=== PATIENT | female | born 1935 | race Caucasian/White ===

== ENCOUNTER 2019-10-29 13:20 | Emergency (ER) | payer MEDICARE ==
[~2019-10-29 13:20] MED LIST: SODIUM CHLORIDE IV ONE
[2019-10-29 14:05] LABS: BASOPHILS % (AUTO) 0.3 % (0.0-5.0); EOSINOPHILS % (AUTO) 0.5 % (0.0-8.0); LYMPHOCYTES % (AUTO) 21.4 % (21.0-51.0); MEAN CORPUSCULAR HEMOGLOBIN 24.4 pg (27.0-33.0); MEAN CORPUSCULAR HGB CONC 31.6 g/dL (32.0-36.0); MEAN CORPUSCULAR VOLUME 77.3 fL (79-99); MONOCYTES % (AUTO) 11.5 % (3.0-13.0); PLATELET COUNT (AUTO) 300 K/uL (130-400); RED BLOOD CELL COUNT(AUTO) 4.01 MIL/uL (4.00-5.50); RED CELL DISTRIBUTION WIDTH 15.4 % (11.0-15.5); WHITE BLOOD COUNT (AUTO) 5.8 K/uL (4.8-10.8)
[2019-10-29 14:17] LABS: CREATININE 1.1 mg/dL (0.5-1.5)
[2019-10-29 14:21] LABS: ALBUMIN 3.2 g/dL (3.5-5.0); BILIRUBIN,DIRECT 0.1 mg/dL (0.0-0.3); BILIRUBIN,TOTAL 0.2 mg/dL (0.2-1.0)
[2019-10-29] MEDS ORDERED: ONDANSETRON HCL 4 MG/2 ML VIAL ONE (14:38)
[2019-10-29] MEDS ORDERED: CEFTRIAXONE SODIUM 1 GM ONE (14:39)
[2019-10-29 16:23] LABS: APPEARANCE,URINE Clear (CLEAR); BILIRUBIN,URINE Negative (NEGATIVE); COLOR,URINE Yellow (YELLOW); GLUCOSE, URINE (UA) Negative (NEGATIVE); KETONES,URINE Negative (NEGATIVE); LEUKOCYTE ESTERASE ,URINE Negative (NEGATIVE); NITRATE,URINE Negative (NEGATIVE); OCCULT BLOOD,URINE Negative (NEGATIVE); PH,URINE >=9.0 (5.0-8.0); PROTEIN,URINE Negative (NEGATIVE); UROBILINOGEN,URINE 0.2 mg/dL (0.2-1.0)
[2019-10-29 16:36] LABS: BACTERIA,URINE Rare /HPF (None Seen); RBC,URINE 0-1 /HPF (0-1); SQUAMOUS EPITHELIAL CELL,UR Rare /HPF (0-2); WBC,URINE 0-1 /HPF (0-1)
== END 2019-10-29 18:30 | disposition home or self-care (01) ==
LOC: EDH 13:20
DX: J20.9 Acute bronchitis, unspecified (principal); E86.0 Dehydration; I10 Essential (primary) hypertension
CPT/HCPCS: 36415; 71045; 80048; 80076; 81001; 82550; 83605; 83690; 84484; 85025; 87040 ×2; 87804 ×2; 93005; 96361; 96374; 96375; 99285; J0696; J2405

== ENCOUNTER 2020-09-30 14:23 | Inpatient (IN) | payer MEDICARE ==
[~2020-09-30] VITALS: Ht 157.5 cm; Wt 59.7 kg
[2020-09-30 15:07] LABS: BASOPHILS % (AUTO) 0.5 % (0.0-5.0); EOSINOPHILS % (AUTO) 0.7 % (0.0-8.0); HEMATOCRIT 35.9 % (36-48); MEAN CORPUSCULAR HGB CONC 31.2 g/dL (32.0-36.0); MONOCYTES % (AUTO) 8.6 % (3.0-13.0); NEUTROPHILS % (AUTO) 69.8 % (40.0-77.0); PLATELET COUNT (AUTO) 256 K/uL (130-400); RED BLOOD CELL COUNT(AUTO) 4.66 MIL/uL (4.00-5.50); WHITE BLOOD COUNT (AUTO) 9.7 K/uL (4.8-10.8)
[2020-09-30 15:18] LABS: CREATININE 1.1 mg/dL (0.5-1.5); POTASSIUM 3.2 mmol/L (3.5-5.1)
[2020-09-30 15:20] LABS: INR 1.05 (0.85-1.15); PROTHROMBIN TIME 11.4 SEC (9.6-11.6)
[2020-09-30 15:21] LABS: PARTIAL THROMBOPLASTIN TIME 21.8 SEC (26.3-35.5)
[2020-09-30 15:26] LABS: ALBUMIN 3.3 g/dL (3.5-5.0); BILIRUBIN,DIRECT 0.1 mg/dL (0.0-0.3); BILIRUBIN,TOTAL 0.6 mg/dL (0.2-1.0); TOTAL PROTEIN, SERUM 6.9 g/dL (6.0-8.3)
[2020-09-30 15:27] LABS: ACETAMINOPHEN < 1 mcg/mL (10-30); ALCOHOL, BLOOD < 3 mg/dL (0-10); SALICYLATE < 2.8 mg/dL (2.8-20.0)
[2020-09-30] MEDS ORDERED: ACETAMINOPHEN WITH CODEINE 1 TAB TAB ONE (15:40)
[2020-09-30] MEDS ORDERED: POTASSIUM CHLORIDE 10% ELIXIR 20 MEQ/15 ML UDCUP ONE (16:10)
[2020-09-30 16:34] LABS: APPEARANCE,URINE Cloudy (CLEAR); BILIRUBIN,URINE Negative (NEGATIVE); COLOR,URINE Yellow (YELLOW); GLUCOSE, URINE (UA) Negative (NEGATIVE); KETONES,URINE Negative (NEGATIVE); LEUKOCYTE ESTERASE ,URINE Moderate (NEGATIVE); NITRATE,URINE Negative (NEGATIVE); OCCULT BLOOD,URINE Negative (NEGATIVE); PH,URINE 7.5 (5.0-8.0); PROTEIN,URINE POS 2+ mg/dL (NEGATIVE)
[2020-09-30 17:00] LABS: BACTERIA,URINE Few /HPF (None Seen); MUCUS,URINE Few LPF (None Seen); SQUAMOUS EPITHELIAL CELL,UR Moderate /HPF (0-2)
[2020-09-30] MEDS: CEFTRIAXONE 1G VIAL IVP SCH (17:30)
[2020-09-30 17:50] LABS: % IRON SATURATION 10.2 % (22-44)
[2020-09-30 18:12] LABS: AMPHET/METH SCREEN,URINE NEGATIVE (NEGATIVE); BARBITURATE SCREEN, URINE NEGATIVE (NEGATIVE); BENZODIAZEPINES SCREEN,URINE NEGATIVE (NEGATIVE); CANNABINOID SCREEN,URINE NEGATIVE (NEGATIVE); COCAINE SCREEN,URINE NEGATIVE (NEGATIVE); OPIATE SCREEN,URINE NEGATIVE (NEGATIVE); PHENCYCLIDINE SCREEN,URINE NEGATIVE (NEGATIVE)
[2020-09-30] MEDS ORDERED: CEFTRIAXONE 1G VIAL ONE (18:18)
[2020-09-30] MEDS ORDERED: 0.9%NACL 50ML 50 ML IV ONE (18:19)
[2020-09-30] MEDS ORDERED: POTASSIUM CHLORIDE 10% ELIXIR 20 MEQ/15 ML UDCUP PO PRN (19:00)
[2020-09-30] MEDS ORDERED: MAGNESIUM 2GM PREMIX 50ML 50 ML IV PRN (19:00)
[2020-09-30] MEDS ORDERED: POTASSIUM CHLORIDE 20MEQ/100ML 100 ML IV PRN (19:00)
[2020-09-30] MEDS: LACTATED RINGERS 1000ML 1,000 ML IV SCH (19:00)
[2020-09-30] MEDS: PANTOPRAZOLE 40 MG TAB DR PO SCH (21:00)
[2020-10-01] MEDS ORDERED: ACETAMINOPHEN WITH CODEINE 1 TAB TAB ONE ×2 (00:24→06:29)
[2020-10-01] MEDS ORDERED: MAGNESIUM 2GM PREMIX 50ML 50 ML IV ONE (02:14)
[2020-10-01] MEDS ORDERED: CEFTRIAXONE 1G VIAL ONE ×2 (05:10→16:21)
[2020-10-01] MEDS: CEFTRIAXONE 1G VIAL IVP SCH ×2 (05:30→17:30)
[2020-10-01 06:27] LABS: BASOPHILS % (AUTO) 0.3 % (0.0-5.0); EOSINOPHILS % (AUTO) 0.1 % (0.0-8.0); HEMATOCRIT 34.5 % (36-48); LYMPHOCYTES % (AUTO) 19.6 % (21.0-51.0); MEAN CORPUSCULAR HEMOGLOBIN 24.3 pg (27.0-33.0); MEAN CORPUSCULAR HGB CONC 31.6 g/dL (32.0-36.0); MONOCYTES % (AUTO) 11.7 % (3.0-13.0); PLATELET COUNT (AUTO) 303 K/uL (130-400); RED BLOOD CELL COUNT(AUTO) 4.48 MIL/uL (4.00-5.50); RED CELL DISTRIBUTION WIDTH 16.3 % (11.0-15.5); WHITE BLOOD COUNT (AUTO) 10.6 K/uL (4.8-10.8)
[2020-10-01 06:42] LABS: ALBUMIN 3.3 g/dL (3.5-5.0); BILIRUBIN,TOTAL 0.5 mg/dL (0.2-1.0); MAGNESIUM 2.4 mg/dL (1.80-2.40); POTASSIUM 4.8 mmol/L (3.5-5.1); TOTAL PROTEIN, SERUM 7.1 g/dL (6.0-8.3)
[2020-10-01] MEDS: LACTATED RINGERS 1000ML 1,000 ML IV SCH ×2 (08:20→21:40)
[2020-10-01] MEDS: PANTOPRAZOLE 40 MG TAB DR PO SCH ×2 (09:00→21:00)
[2020-10-01] MEDS ORDERED: PANTOPRAZOLE 40 MG/VIAL ONE (09:24)
[2020-10-01] MEDS: IRON SUCROSE COMPLEX 100 MG in 0.9%NACL 50ML 50 ML IV SCH (12:15)
[2020-10-01] MEDS ORDERED: IOHEXOL-350 75 ML VIAL IV ONE (12:27)
[2020-10-01] MEDS ORDERED: COMPOUND IV MISC 1 EACH IVSOLN MISC PRN (12:30)
[2020-10-02] MEDS ORDERED: METOPROLOL TARTRATE 50 MG TAB ONE (00:16)
[2020-10-02] MEDS ORDERED: METOPROLOL TARTRATE 1 MG/ML 5ML VIAL IV ONE ×2 (00:16→00:50)
[2020-10-02] MEDS ORDERED: METOPROLOL SUCCINATE 50 MG TAB.SR.24H PO ONE (00:51)
[2020-10-02] MEDS ORDERED: DILTIAZEM 125 MG/25 ML INJ IV ONE (01:15)
[2020-10-02] MEDS ORDERED: LORAZEPAM 2 MG/ML 1 ML VIAL ONE (05:30)
[2020-10-02] MEDS: CEFTRIAXONE 1G VIAL IVP SCH ×2 (05:30→16:24)
[2020-10-02 08:02] LABS: BASOPHILS % (AUTO) 0.2 % (0.0-5.0); EOSINOPHILS % (AUTO) 0.6 % (0.0-8.0); HEMATOCRIT 36.5 % (36-48); LYMPHOCYTES % (AUTO) 10.4 % (21.0-51.0); MEAN CORPUSCULAR HEMOGLOBIN 23.9 pg (27.0-33.0); MEAN CORPUSCULAR HGB CONC 31.2 g/dL (32.0-36.0); MEAN CORPUSCULAR VOLUME 76.5 fL (79-99); MONOCYTES % (AUTO) 4.3 % (3.0-13.0); NEUTROPHILS % (AUTO) 83.9 % (40.0-77.0); PLATELET COUNT (AUTO) 311 K/uL (130-400); RED BLOOD CELL COUNT(AUTO) 4.77 MIL/uL (4.00-5.50); RED CELL DISTRIBUTION WIDTH 16.4 % (11.0-15.5); WHITE BLOOD COUNT (AUTO) 12.6 K/uL (4.8-10.8)
[2020-10-02] MEDS ORDERED: PANTOPRAZOLE 40 MG/VIAL ONE (08:15)
[2020-10-02 08:22] LABS: BILIRUBIN,TOTAL 0.7 mg/dL (0.2-1.0); MAGNESIUM 1.7 mg/dL (1.80-2.40); POTASSIUM 4.4 mmol/L (3.5-5.1); TOTAL PROTEIN, SERUM 6.6 g/dL (6.0-8.3)
[2020-10-02] MEDS: IRON SUCROSE COMPLEX 100 MG in 0.9%NACL 50ML 50 ML IV SCH (09:00)
[2020-10-02] MEDS: PANTOPRAZOLE 40 MG TAB DR PO SCH ×2 (09:00→21:57)
[2020-10-02 12:00] VITALS: BP 112/64
[2020-10-02] MEDS: LACTATED RINGERS 1000ML 1,000 ML IV SCH (12:50)
[2020-10-02] MEDS: ENOXAPARIN SODIUM 30 MG/0.3 ML SQ SCH (12:50)
[2020-10-02 16:00] VITALS: BP 144/72
[2020-10-02] MEDS: PROPAFENONE HCL 150 MG TABLET PO SCH ×2 (16:24→21:57)
[2020-10-02 19:00] VITALS: BP 150/84
[2020-10-02] MEDS: ACETAMINOPHEN WITH CODEINE 1 TAB TAB PO PRN (21:59)
[2020-10-03] VITALS (7 sets, daily range): BP systolic 133–186; BP diastolic 73–103
[2020-10-03] MEDS: LACTATED RINGERS 1000ML 1,000 ML IV SCH ×2 (01:04→15:09)
[2020-10-03] MEDS: CEFTRIAXONE 1G VIAL IVP SCH ×2 (04:44→16:16)
[2020-10-03 05:18] LABS: BASOPHILS % (AUTO) 0.4 % (0.0-5.0); EOSINOPHILS % (AUTO) 4.5 % (0.0-8.0); HEMATOCRIT 30.7 % (36-48); LYMPHOCYTES % (AUTO) 18.9 % (21.0-51.0); MEAN CORPUSCULAR HEMOGLOBIN 24.2 pg (27.0-33.0); MEAN CORPUSCULAR HGB CONC 31.6 g/dL (32.0-36.0); MEAN CORPUSCULAR VOLUME 76.6 fL (79-99); MONOCYTES % (AUTO) 10.4 % (3.0-13.0); NEUTROPHILS % (AUTO) 65.4 % (40.0-77.0); PLATELET COUNT (AUTO) 278 K/uL (130-400); RED BLOOD CELL COUNT(AUTO) 4.01 MIL/uL (4.00-5.50); RED CELL DISTRIBUTION WIDTH 16.2 % (11.0-15.5); WHITE BLOOD COUNT (AUTO) 7.8 K/uL (4.8-10.8)
[2020-10-03] MEDS: PROPAFENONE HCL 150 MG TABLET PO SCH ×3 (05:18→21:02)
[2020-10-03 05:39] LABS: ALBUMIN 2.8 g/dL (3.5-5.0); BILIRUBIN,TOTAL 0.6 mg/dL (0.2-1.0); CREATININE 0.9 mg/dL (0.5-1.5); POTASSIUM 3.5 mmol/L (3.5-5.1); TOTAL PROTEIN, SERUM 6.1 g/dL (6.0-8.3)
[2020-10-03] MEDS: PANTOPRAZOLE 40 MG TAB DR PO SCH ×2 (07:41→21:02)
[2020-10-03] MEDS: ENOXAPARIN SODIUM 30 MG/0.3 ML SQ SCH (07:42)
[2020-10-03] MEDS: IRON SUCROSE COMPLEX 100 MG in 0.9%NACL 50ML 50 ML IV SCH (09:25)
[2020-10-03] MEDS: ACETAMINOPHEN WITH CODEINE 1 TAB TAB PO PRN ×2 (09:30→21:20)
[2020-10-03] MEDS: MAGNESIUM 2GM PREMIX 50ML 50 ML IV SCH (12:30)
[2020-10-04] MEDS: LACTATED RINGERS 1000ML 1,000 ML IV SCH ×2 (02:24→18:22)
[2020-10-04 04:49] VITALS: BP 154/98
[2020-10-04] MEDS: ACETAMINOPHEN WITH CODEINE 1 TAB TAB PO PRN ×2 (05:19→14:41)
[2020-10-04] MEDS: CEFTRIAXONE 1G VIAL IVP SCH ×2 (05:19→18:22)
[2020-10-04] MEDS: PROPAFENONE HCL 150 MG TABLET PO SCH ×3 (05:20→21:24)
[2020-10-04 05:28] LABS: HEMATOCRIT 30.5 % (36-48); MEAN CORPUSCULAR HEMOGLOBIN 24.1 pg (27.0-33.0); MEAN CORPUSCULAR HGB CONC 31.8 g/dL (32.0-36.0); MEAN CORPUSCULAR VOLUME 75.7 fL (79-99); RED BLOOD CELL COUNT(AUTO) 4.03 MIL/uL (4.00-5.50); RED CELL DISTRIBUTION WIDTH 16.3 % (11.0-15.5); WHITE BLOOD COUNT (AUTO) 6.6 K/uL (4.8-10.8)
[2020-10-04] MEDS ORDERED: DILTIAZEM 50MG VIAL IV SCH (06:00)
[2020-10-04] MEDS ORDERED: DILTIAZEM 50MG VIAL IV ONE (06:01)
[2020-10-04 07:00] VITALS: BP 137/97
[2020-10-04] MEDS: PANTOPRAZOLE 40 MG TAB DR PO SCH ×2 (09:25→21:24)
[2020-10-04] MEDS: IRON SUCROSE COMPLEX 100 MG in 0.9%NACL 50ML 50 ML IV SCH (09:25)
[2020-10-04] MEDS: ENOXAPARIN SODIUM 30 MG/0.3 ML SQ SCH (09:26)
[2020-10-04 11:00] VITALS: BP 110/72
[2020-10-04] MEDS: DILTIAZEM 60MG TAB PO SCH ×2 (14:27→21:24)
[2020-10-04 16:00] VITALS: BP 124/71
[2020-10-04] MEDS: MAGNESIUM 2GM PREMIX 50ML 50 ML IV SCH (16:49)
[2020-10-04 19:03] VITALS: BP 107/66
[2020-10-04 23:51] VITALS: BP 124/67
[2020-10-05] MEDS: ACETAMINOPHEN WITH CODEINE 1 TAB TAB PO PRN ×2 (02:19→13:55)
[2020-10-05 03:41] VITALS: BP 116/60
[2020-10-05] MEDS: CEFTRIAXONE 1G VIAL IVP SCH ×2 (05:39→17:09)
[2020-10-05] MEDS: PROPAFENONE HCL 150 MG TABLET PO SCH ×3 (05:39→21:56)
[2020-10-05] MEDS: DILTIAZEM 60MG TAB PO SCH ×3 (05:39→21:56)
[2020-10-05] MEDS: LACTATED RINGERS 1000ML 1,000 ML IV SCH ×2 (05:40→21:57)
[2020-10-05 07:00] VITALS: BP 112/61
[2020-10-05] MEDS: PANTOPRAZOLE 40 MG TAB DR PO SCH ×2 (09:30→21:56)
[2020-10-05] MEDS: ENOXAPARIN SODIUM 30 MG/0.3 ML SQ SCH (09:31)
[2020-10-05] MEDS: IRON SUCROSE COMPLEX 100 MG in 0.9%NACL 50ML 50 ML IV SCH (09:31)
[2020-10-05 11:00] VITALS: BP 150/83
[2020-10-05 15:00] VITALS: BP 143/79
[2020-10-05 19:20] VITALS: BP 151/72
[2020-10-05 23:53] VITALS: BP_SYST 115; BP_SYST 149; BP_DIAS 71; BP_DIAS 98
[2020-10-06] VITALS (20 sets, daily range): BP systolic 73–156; BP diastolic 41–110
[2020-10-06 04:22] LABS: BASOPHILS % (AUTO) 0.6 % (0.0-5.0); EOSINOPHILS % (AUTO) 2.9 % (0.0-8.0); HEMATOCRIT 30.6 % (36-48); LYMPHOCYTES % (AUTO) 19.3 % (21.0-51.0); MEAN CORPUSCULAR HEMOGLOBIN 25.1 pg (27.0-33.0); MEAN CORPUSCULAR VOLUME 76.1 fL (79-99); MONOCYTES % (AUTO) 13.5 % (3.0-13.0); NEUTROPHILS % (AUTO) 63.2 % (40.0-77.0); PLATELET COUNT (AUTO) 319 K/uL (130-400); RED BLOOD CELL COUNT(AUTO) 4.02 MIL/uL (4.00-5.50); RED CELL DISTRIBUTION WIDTH 17.6 % (11.0-15.5)
[2020-10-06 04:47] LABS: ALBUMIN 2.7 g/dL (3.5-5.0); BILIRUBIN,TOTAL 0.5 mg/dL (0.2-1.0); POTASSIUM 3.3 mmol/L (3.5-5.1); TOTAL PROTEIN, SERUM 6.2 g/dL (6.0-8.3)
[2020-10-06] MEDS ORDERED: 0.9%NACL 10ML VIAL ONE (05:36)
[2020-10-06] MEDS: CEFTRIAXONE 1G VIAL IVP SCH (05:39)
[2020-10-06] MEDS: DILTIAZEM 60MG TAB PO SCH ×2 (05:45→10:51)
[2020-10-06] MEDS: PROPAFENONE HCL 150 MG TABLET PO SCH ×2 (05:45→15:54)
[2020-10-06] MEDS ORDERED: GLYCOPYRROLATE 1 MG/5 ML SYRINGE ONE (08:24)
[2020-10-06] MEDS ORDERED: PROPOFOL 10 MG/ML 20ML VIAL IV ONE (08:24)
[2020-10-06] MEDS ORDERED: PHENYLEPHRINE HCL 10 MG/ML 1ML VIAL IV ONE (08:25)
[2020-10-06] MEDS: PANTOPRAZOLE 40 MG TAB DR PO SCH ×2 (10:51→21:45)
[2020-10-06] MEDS: ENOXAPARIN SODIUM 30 MG/0.3 ML SQ SCH (10:55)
[2020-10-06] MEDS: KCL 20 MEQ ERTAB PO PRN ×2 (11:00→16:01)
[2020-10-06] MEDS: ZOSYN 3.375GM+NS 50ML 50 ML IV SCH ×2 (11:01→15:54)
[2020-10-06] MEDS ORDERED: PEG 3350/NA SULF,BICARB,CL/KCL 4000 ML SOLN PO SCH (14:00)
[2020-10-06] MEDS: ACETAMINOPHEN WITH CODEINE 1 TAB TAB PO PRN (21:45)
[2020-10-06] MEDS: VERAPAMIL HCL 80 MG TABLET PO SCH (21:46)
[2020-10-06] MEDS: FLECAINIDE ACETATE 100 MG TABLET PO SCH (21:49)
[2020-10-07] VITALS (20 sets, daily range): BP systolic 86–156; BP diastolic 46–85
[2020-10-07] MEDS: ZOSYN 3.375GM+NS 50ML 50 ML IV SCH ×2 (01:12→11:28)
[2020-10-07 04:14] LABS: BASOPHILS % (AUTO) 0.3 % (0.0-5.0); EOSINOPHILS % (AUTO) 0.5 % (0.0-8.0); HEMATOCRIT 31.1 % (36-48); LYMPHOCYTES % (AUTO) 19.8 % (21.0-51.0); MEAN CORPUSCULAR HEMOGLOBIN 24.6 pg (27.0-33.0); MEAN CORPUSCULAR HGB CONC 32.2 g/dL (32.0-36.0); MEAN CORPUSCULAR VOLUME 76.6 fL (79-99); MONOCYTES % (AUTO) 13.9 % (3.0-13.0); PLATELET COUNT (AUTO) 371 K/uL (130-400); RED BLOOD CELL COUNT(AUTO) 4.06 MIL/uL (4.00-5.50); RED CELL DISTRIBUTION WIDTH 18.3 % (11.0-15.5); WHITE BLOOD COUNT (AUTO) 11.4 K/uL (4.8-10.8)
[2020-10-07 04:32] LABS: ALBUMIN 2.7 g/dL (3.5-5.0); BILIRUBIN,TOTAL 0.7 mg/dL (0.2-1.0); CREATININE 0.9 mg/dL (0.5-1.5); POTASSIUM 3.3 mmol/L (3.5-5.1); TOTAL PROTEIN, SERUM 6.7 g/dL (6.0-8.3)
[2020-10-07] MEDS ORDERED: LIDOCAINE HCL-MPF 1% 2ML VIAL IV PRN (05:15)
[2020-10-07] MEDS ORDERED: POTASSIUM CHLORIDE 20MEQ/100ML 100 ML IV PRN (05:15)
[2020-10-07] MEDS ORDERED: LIDOCAINE HCL-MPF 1% 2ML VIAL ONE (05:15)
[2020-10-07] MEDS: VERAPAMIL HCL 80 MG TABLET PO SCH ×3 (06:10→22:23)
[2020-10-07] MEDS ORDERED: PROPOFOL 10 MG/ML 20ML VIAL IV ONE (08:22)
[2020-10-07] MEDS: FLECAINIDE ACETATE 100 MG TABLET PO SCH ×2 (11:27→22:23)
[2020-10-07] MEDS: KCL 20 MEQ ERTAB PO PRN ×2 (11:28→14:33)
[2020-10-07] MEDS: PANTOPRAZOLE 40 MG TAB DR PO SCH ×2 (11:28→22:23)
[2020-10-07] MEDS: ENOXAPARIN SODIUM 30 MG/0.3 ML SQ SCH (11:29)
[2020-10-08 00:04] VITALS: BP 148/75
[2020-10-08 04:04] VITALS: BP 135/78
[2020-10-08 05:12] LABS: BASOPHILS % (AUTO) 0.4 % (0.0-5.0); HEMATOCRIT 32.3 % (36-48); LYMPHOCYTES % (AUTO) 17.1 % (21.0-51.0); MEAN CORPUSCULAR HEMOGLOBIN 24.8 pg (27.0-33.0); MEAN CORPUSCULAR HGB CONC 32.2 g/dL (32.0-36.0); MEAN CORPUSCULAR VOLUME 76.9 fL (79-99); MONOCYTES % (AUTO) 12.2 % (3.0-13.0); NEUTROPHILS % (AUTO) 68.8 % (40.0-77.0); PLATELET COUNT (AUTO) 383 K/uL (130-400); RED CELL DISTRIBUTION WIDTH 18.9 % (11.0-15.5)
[2020-10-08] MEDS: ZOSYN 3.375GM+NS 50ML 50 ML IV SCH ×5 (05:31→23:01)
[2020-10-08] MEDS: VERAPAMIL HCL 80 MG TABLET PO SCH ×3 (05:31→22:41)
[2020-10-08 05:46] LABS: ALBUMIN 2.7 g/dL (3.5-5.0); BILIRUBIN,TOTAL 0.6 mg/dL (0.2-1.0); CREATININE 0.9 mg/dL (0.5-1.5); POTASSIUM 3.8 mmol/L (3.5-5.1); TOTAL PROTEIN, SERUM 6.9 g/dL (6.0-8.3)
[2020-10-08 07:55] VITALS: BP 134/71
[2020-10-08] MEDS: ENOXAPARIN SODIUM 30 MG/0.3 ML SQ SCH (09:00)
[2020-10-08] MEDS: PANTOPRAZOLE 40 MG TAB DR PO SCH ×2 (10:57→22:40)
[2020-10-08] MEDS: FLECAINIDE ACETATE 100 MG TABLET PO SCH ×2 (10:58→22:40)
[2020-10-08 11:42] VITALS: BP 123/66
[2020-10-08 16:00] VITALS: BP 155/80
[2020-10-08 20:02] VITALS: BP 157/81
[2020-10-09 00:20] VITALS: BP 159/83
[2020-10-09 04:36] VITALS: BP 160/80
[2020-10-09 04:55] LABS: BASOPHILS % (AUTO) 0.5 % (0.0-5.0); EOSINOPHILS % (AUTO) 1.1 % (0.0-8.0); HEMATOCRIT 32.1 % (36-48); MEAN CORPUSCULAR HEMOGLOBIN 24.6 pg (27.0-33.0); MEAN CORPUSCULAR HGB CONC 32.1 g/dL (32.0-36.0); MEAN CORPUSCULAR VOLUME 76.6 fL (79-99); NEUTROPHILS % (AUTO) 69.8 % (40.0-77.0); PLATELET COUNT (AUTO) 364 K/uL (130-400); RED BLOOD CELL COUNT(AUTO) 4.19 MIL/uL (4.00-5.50); RED CELL DISTRIBUTION WIDTH 18.6 % (11.0-15.5); WHITE BLOOD COUNT (AUTO) 12.3 K/uL (4.8-10.8)
[2020-10-09 05:16] LABS: ALBUMIN 2.6 g/dL (3.5-5.0); POTASSIUM 3.6 mmol/L (3.5-5.1)
[2020-10-09] MEDS: VERAPAMIL HCL 80 MG TABLET PO SCH (06:00)
[2020-10-09 08:00] VITALS: BP 150/83
[2020-10-09] MEDS ORDERED: APIXABAN 5 MG TABLET PO SCH (09:00)
[2020-10-09] MEDS ORDERED: VERA120C2 PO (09:48)
[2020-10-09] MEDS ORDERED: Flecainide Acetate PO (09:48)
[2020-10-09] MEDS ORDERED: APIX5TAB PO (09:48)
[2020-10-09] MEDS ORDERED: OMEP40CA21 PO (10:03)
[2020-10-09] MEDS: ZOSYN 3.375GM+NS 50ML 50 ML IV SCH (10:06)
[2020-10-09] MEDS: PANTOPRAZOLE 40 MG TAB DR PO SCH (10:10)
[2020-10-09] MEDS: FLECAINIDE ACETATE 100 MG TABLET PO SCH (10:10)
[2020-10-09 12:00] VITALS: BP 142/67
== END 2020-10-09 20:23 | DRG 312 ==
LOC: EDH 14:23 → EDHIP 17:24 → OBSVTOIN 17:24 → 3AH 10-01 23:05 → EDHIP 10-02 02:33 → 4CH 10-02 10:05 → 4DH 10-04 22:16
PROVIDERS: ADMIT Internal Medicine; ATTEND Internal Medicine
PROC: 0DB98ZX Excision of Duodenum, Via Natural or Artificial Opening Endoscopic, Diagnostic (ICD-10-PCS; principal; 2020-10-06)
PROC: 0DB68ZX Excision of Stomach, Via Natural or Artificial Opening Endoscopic, Diagnostic (ICD-10-PCS; 2020-10-06)
PROC: 0DB58ZX Excision of Esophagus, Via Natural or Artificial Opening Endoscopic, Diagnostic (ICD-10-PCS; 2020-10-06)
PROC: 0DJD8ZZ Inspection of Lower Intestinal Tract, Via Natural or Artificial Opening Endoscopic (ICD-10-PCS; 2020-10-07)
DX: R55 Syncope and collapse (principal); S42.301A Unspecified fracture of shaft of humerus, right arm, initial encounter for closed fracture; N39.0 Urinary tract infection, site not specified; E87.2 Acidosis; D62 Acute posthemorrhagic anemia; G30.9 Alzheimer's disease, unspecified; S42.031A Displaced fracture of lateral end of right clavicle, initial encounter for closed fracture; F02.80 Dementia in other diseases classified elsewhere, unspecified severity, without behavioral disturbance, psychotic disturbance, mood disturbance, and anxiety; E83.42 Hypomagnesemia; E87.6 Hypokalemia; I48.0 Paroxysmal atrial fibrillation; I10 Essential (primary) hypertension; Z79.01 Long term (current) use of anticoagulants; Z87.01 Personal history of pneumonia (recurrent); Z86.711 Personal history of pulmonary embolism; Z86.718 Personal history of other venous thrombosis and embolism; Z86.73 Personal history of transient ischemic attack (TIA), and cerebral infarction without residual deficits; I25.10 Atherosclerotic heart disease of native coronary artery without angina pectoris; Z96.643 Presence of artificial hip joint, bilateral; W01.0XXA Fall on same level from slipping, tripping and stumbling without subsequent striking against object, initial encounter; Y93.89 Activity, other specified; Y99.8 Other external cause status; Z79.899 Other long term (current) drug therapy; E78.5 Hyperlipidemia, unspecified; K21.00 Gastro-esophageal reflux disease with esophagitis, without bleeding; K44.9 Diaphragmatic hernia without obstruction or gangrene; I35.0 Nonrheumatic aortic (valve) stenosis; K57.30 Diverticulosis of large intestine without perforation or abscess without bleeding; Y92.511 Restaurant or cafe as the place of occurrence of the external cause; R53.83 Other fatigue; D50.9 Iron deficiency anemia, unspecified; B95.2 Enterococcus as the cause of diseases classified elsewhere
CPT/HCPCS: 36415; 43239; 45378; 70450; 71045; 71275; 72125; 72131; 72170; 73000; 73030; 76770; 80048; 80053; 80076; 80305; 81001; 82607; 82746; 83036; 83540; 83550; 83605; 83735; 84145; 84443; 84484; 85025; 85027; 85610; 85730; 86850; 86900; 86901; 87040; 87077; 87088; 87186; 88305; 88342; 93005; 93306; 93308; 93356; 93880; 93970; 93979; 97039; A4606; C9113; G0378; G0481; J0696; J1650; J1756; J2060; J2370; J2543; J2704; J3475; J3480; J3490; J7030; J7120; Q9967

== ENCOUNTER 2020-12-11 09:34 | Emergency (ER) | payer MEDICARE ==
[~2020-12-11 09:34] MED LIST changes: +APIX5TAB PO; +Flecainide Acetate PO; +OMEP40CA13 PO; -SODIUM CHLORIDE IV ONE; +VERA120C2 PO
[2020-12-11] MEDS ORDERED: MAG HYDROX/AL HYDROX/SIMETH ES 30 ML SUSP UDCUP ONE (09:53)
[2020-12-11 10:06] LABS: BASOPHILS % (AUTO) 0.6 % (0.0-5.0); EOSINOPHILS % (AUTO) 2.6 % (0.0-8.0); HEMATOCRIT 35.7 % (36-48); MEAN CORPUSCULAR HEMOGLOBIN 27.3 pg (27.0-33.0); MEAN CORPUSCULAR HGB CONC 32.2 g/dL (32.0-36.0); MEAN CORPUSCULAR VOLUME 84.8 fL (79-99); MONOCYTES % (AUTO) 8.5 % (3.0-13.0); PLATELET COUNT (AUTO) 236 K/uL (130-400); RED BLOOD CELL COUNT(AUTO) 4.21 MIL/uL (4.00-5.50); RED CELL DISTRIBUTION WIDTH 20.3 % (11.0-15.5); WHITE BLOOD COUNT (AUTO) 6.3 K/uL (4.8-10.8)
[2020-12-11 10:13] LABS: CREATININE 0.9 mg/dL (0.5-1.5); POTASSIUM 3.8 mmol/L (3.5-5.1)
[2020-12-11 10:16] LABS: INR 1.1 (0.85-1.15); PROTHROMBIN TIME 11.9 SEC (9.6-11.6)
[2020-12-11 10:17] LABS: PARTIAL THROMBOPLASTIN TIME 25.8 SEC (26.3-35.5)
[2020-12-11 10:18] LABS: ALBUMIN 3.3 g/dL (3.5-5.0); BILIRUBIN,TOTAL 0.9 mg/dL (0.2-1.0); TOTAL PROTEIN, SERUM 6.4 g/dL (6.0-8.3)
[2020-12-11 11:55] LABS: APPEARANCE,URINE Clear (CLEAR); BILIRUBIN,URINE Negative (NEGATIVE); COLOR,URINE Yellow (YELLOW); GLUCOSE, URINE (UA) Negative (NEGATIVE); KETONES,URINE Negative (NEGATIVE); LEUKOCYTE ESTERASE ,URINE Trace (NEGATIVE); NITRATE,URINE Negative (NEGATIVE); OCCULT BLOOD,URINE Negative (NEGATIVE); PH,URINE 7.5 (5.0-8.0); PROTEIN,URINE Negative (NEGATIVE); UROBILINOGEN,URINE 0.2 mg/dL (0.2-1.0)
[2020-12-11 12:25] LABS: BACTERIA,URINE None Seen /HPF (None Seen); RBC,URINE None Seen /HPF (0-1)
[2020-12-11 12:26] LABS: SQUAMOUS EPITHELIAL CELL,UR Rare /HPF (0-2)
== END 2020-12-11 12:39 | disposition home or self-care (01) ==
LOC: EDH 09:34
DX: K80.80 Other cholelithiasis without obstruction (principal); E78.00 Pure hypercholesterolemia, unspecified; I10 Essential (primary) hypertension
CPT/HCPCS: 36415; 71045; 72125; 74176; 76705; 80053; 81001; 82550; 83690; 84484; 85025; 85610; 85730; 93005